=== PATIENT | female | born 1960 | race Caucasian/White ===

== ENCOUNTER 2017-01-15 10:33 | Emergency (ER) | payer BC ==
[2017-01-15 11:57] LABS: Hematocrit 35 % (35-47); Hemoglobin 11.9 g/dl (12.0-16.0); Mean Corpuscular HGB Conc 34 g/dl (31-36); Mean Corpuscular Hemoglobin 29 pg (27-31); Mean Corpuscular Volume 84 fL (80-97); Mean Platelet Volume 10 um3 (7.4-10.4); Red Blood Count 4.14 10^6/ul (4.0-5.4); Red Cell Distribution Width 14 % (10.5-15); White Blood Count 6.4 10^3/ul (3.5-10.8)
[2017-01-15 12:08] LABS: Albumin 4.4 g/dL (3.2-5.2); BUN/Creatinine Ratio 15.2 (8-20); Calcium 10.5 mg/dL (8.6-10.3); EGFR African American 96.1 (>60); EGFR Non-African American 74.7 (>60); Globulin 2.8 g/dL (2-4); Potassium 3.1 mmol/L (3.5-5.0); Total Bilirubin 0.6 mg/dL (0.2-1.0); Total Protein 7.2 g/dL (6.4-8.9)
[2017-01-15] MEDS ORDERED: Potassium Chlor TAB* 20 MEQ TAB.ER PO ONE (13:16)
--- NOTE | 2017-01-15 13:31 | ED ---
Nathan Lozada Angela, scribed for Jax Chaudhary on 01/15/17 at 1130 . GI/ HPI - HPI Summary HPI Summary: This pt is a 56 y/o female presenting to [facility] c/o black tarry stools and bloody stools for a few days. Pt reports nausea, weakness, dizziness, and abdominal discomfort. She notes having a decreased appetite due to her abd discomfort and bloating. She denies vomiting, fever, abd pain, back pain, hemorrhoids. Pt drinks alcohol occasionally but denies tobacco or drug use. She notes having a stent placed in September 2016 and was put on Brilinta for 6 weeks and ASA for 2 months post-stent placement. - History of Current Complaint Chief Complaint: EDGIBleed Time Seen by Provider: 01/15/17 11:08 Stated Complaint: BLOODY STOOL Hx Obtained From: Patient Onset/Duration: Started Days Ago Timing: Lasting Days Pain Intensity: 1 Associated Signs and Symptoms: Positive: Dizziness, Weakness, Black Tarry Stool , Blood w/Stool, Melena. Negative: Back Pain, Rectal Pain, External Hemorrhoid , Constipation, Discharge, External Hemorrhoids, Diarrhea, Fever, Abdominal Pain Aggravating Factor(s): Nothing Alleviating Factor(s): Nothing - Allergy/Home Medications Allergies/Adverse Reactions: Allergies Allergy/AdvReac Type Severity Reaction Status Date / Time No Known Allergies Allergy Verified 01/15/17 10:40 PMH/Surg Hx/FS Hx/Imm Hx Endocrine/Hematology History: Reports: Hx Thyroid Disease Cardiovascular History: Denies: Hx Hypertension - Surgical History Surgery Procedure, Year, and Place: Cardiac stent on September 2016 Infectious Disease History: Denies: Traveled Outside the [place] in Last 30 Days - Family History Known Family History: Positive: Cardiac Disease, Hypertension, Other - Thyroid - Social History Alcohol Use: Occasionally Substance Use Type: Reports: None Smoking Status (MU): Never Smoked Tobacco Review of Systems Positive: Other - decreased appetite. Negative: Fever, Chills Negative: Chest Pain Negative: Shortness Of Breath Gastrointestinal: Negative - hemorrhoids Positive: Nausea, Other - abdominal discomfort and burning, black tarry stools, bloody stools. Negative: Abdominal Pain, Vomiting, Diarrhea Musculoskeletal: Negative Skin: Negative Positive: Weakness - and dizziness Psychological: Normal All Other Systems Reviewed And Are Negative: Yes Physical Exam - Summary Physical Exam Summary: Rectal exam is negative Triage Information Reviewed: Yes Vital Signs On Initial Exam: Initial Vitals Temp Pulse Resp BP Pulse Ox 96.6 F 69 18 155/91 99 01/15/17 10:35 01/15/17 10:35 01/15/17 10:35 01/15/17 10:35 01/15/17 10:35 Vital Signs Reviewed: Yes Appearance: Positive: Well-Appearing, No Pain Distress Skin: Positive: Warm, Skin Color Reflects Adequate Perfusion, Dry Head/Face: Positive: Normal Head/Face Inspection Eyes: Positive: EOMI, KARUNA ENT: Positive: Normal ENT inspection Neck: Positive: Supple, Nontender Respiratory/Lung Sounds: Positive: Clear to Auscultation, Breath Sounds Present Cardiovascular: Positive: RRR, Pulses are Symmetrical in both Upper and Lower Extremities Abdomen Description: Positive: Nontender, Soft Bowel Sounds: Positive: Present Musculoskeletal: Positive: Normal, Strength/ROM Intact Neurological: Positive: Normal, Sensory/Motor Intact, Alert, Oriented to Person Place, Time Diagnostics - Vital Signs Vital Signs Temp Pulse Resp BP Pulse Ox 01/15/17 10:35 96.6 F 69 18 155/91 99 - Laboratory Result Diagrams: 01/15/17 11:39 01/15/17 11:39 Lab Statement: Any lab studies that have been ordered have been reviewed, and results considered in the medical decision making process. GIGU Course/Dx - Course Assessment/Plan: This pt is a 56 y/o female presenting to [facility] c/o black tarry stools and bloody stools for a few days. Pt reports nausea, weakness, dizziness , and abdominal discomfort. Elevated BP noted. Bloodwork and stool occult blood were obtained. Stool occult blood was negative. Pt will be discharged with dx of hypokalemia. She is advised to follow up with her PCP in 3 days. - Diagnoses Provider Diagnoses: Hypokalemia Discharge - Discharge Plan Condition: Stable Disposition: HOME Referrals: Non Staff,Doctor [Primary Care Provider] - Additional Instructions: Please follow up with your primary care provider in 3 days. The documentation as recorded by the Nathan perez Angela accurately reflects the service I personally performed and the decisions made by , Jax Chaudhary.
[2017-01-15 14:24] VITALS: BP 116/74
== END 2017-01-15 14:24 | disposition home or self-care (01) ==
LOC: ED 10:33
DX: E87.6 Hypokalemia (principal); E07.9 Disorder of thyroid, unspecified
CPT/HCPCS: 36415; 80053; 82272; 83690; 85025; 85610; 85730; 86850; 86900; 86901; 99283; A9270-GY